=== PATIENT | female | born 1985 | race Caucasian/White ===

== ENCOUNTER 2020-12-28 10:27 | Emergency (ER) | payer OTHER ==
[~2020-12-28] VITALS: Ht 167.6 cm; Wt 149.4 kg
[2020-12-28 10:32] VITALS: BP 163/95
--- NOTE | 2020-12-28 10:45 | NUR ---
Patient ambulated to bed 6. RN evaluating the patient at bedside.
--- NOTE | 2020-12-28 10:53 | NUR ---
35 Y/O FEMALE C/O LEFT EAR PAIN X 2 MONTHS. 12/21/20 SEEN BY PCP & FINISHED CIPRO 3 DAYS AGO. PT STATES 4/10 "PIERCING" EAR PAIN. PT STATES FEELS MUFFLED. DENIES ANY DISCHARGE. 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
--- NOTE | 2020-12-28 10:57 | NUR ---
Dr. Rowe is evaluating the patient at bedside.
[2020-12-28] MEDS ORDERED: DEXA6TAB8 PO (11:24)
--- NOTE | 2020-12-28 11:30 | NUR ---
Patient discharged with v/s stable. Written and verbal after care instructions given and explained. Patient alert, oriented and verbalized understanding of instructions. Ambulatory with steady gait. All questions addressed prior to discharge. ID band removed. Patient advised to follow up with PMD. Rx of DEXAMETHASONE given. Patient educated on indication of medication including possible reaction and side effects. Opportunity to ask questions provided and answered.
[2020-12-29] MEDS ORDERED: SIMETHICONE 40 MG/0.6 ML ONE (10:16)
== END 2020-12-28 11:30 | disposition home or self-care (01) ==
LOC: MED 10:27
DX: H92.02 Otalgia, left ear (principal); M26.622 Arthralgia of left temporomandibular joint; E66.9 Obesity, unspecified; Z68.53 Body mass index [BMI] pediatric, 85th percentile to less than 95th percentile for age
CPT/HCPCS: 99283